=== PATIENT | male | born 1960 | race Caucasian/White ===

== ENCOUNTER 2017-09-23 13:13 | Emergency (ER) | payer OTHER ==
[2017-09-23 13:38] VITALS: BP 152/91
--- NOTE | 2017-09-23 13:43 | UC ---
Laceration HPI - HPI Summary HPI Summary: pt cut his left thumb wih a utility knife 48 hours ago. it continues to bleed since. the bleeding will stop with pressure but reoccurs when he bends the thumb. no FB sensation, limited rom or numb/weakness. tetanus is utd(<10 years). - History Of Current Complaint Stated Complaint: LEFT THUMB LACERATION Time Seen by Provider: 09/23/17 13:32 Hx Obtained From: Patient, Family/3D Modeler Aggravating Factors: Movement - Allergies/Home Medications Allergies/Adverse Reactions: Allergies Allergy/AdvReac Type Severity Reaction Status Date / Time No Known Allergies Allergy Verified 09/23/17 13:38 Home Medications: Home Medications Blood Pressure Med 09/23/17 [History] PMH/Surg Hx/FS Hx/Imm Hx Cardiovascular History: Hypertension Other History Of: Negative For: HIV, Hepatitis B, Hepatitis C, Anticoagulant Therapy - Surgical History Surgical History: Yes Surgery Procedure, Year, and Place: vasectomy - Family History Known Family History: Positive: None - Social History Occupation: Employed Full-time Lives: With Family Alcohol Use: Occasionally Substance Use Type: None Smoking Status (MU): Never Smoked Tobacco - Immunization History Hx Tetanus, Diphtheria Vaccination: Yes Vaccination Up to Date: Yes Review of Systems Constitutional: Negative Skin: Other - cut L thumb Eyes: Negative ENT: Negative Respiratory: Negative Cardiovascular: Negative Gastrointestinal: Negative Genitourinary: Negative Motor: Negative Neurovascular: Negative Musculoskeletal: Negative Neurological: Negative Psychological: Negative Is Patient Immunocompromised?: No All Other Systems Reviewed And Are Negative: Yes Physical Exam Triage Information Reviewed: Yes Appearance: Well-Appearing Vital Signs Reviewed: Yes Eyes: Positive: Conjunctiva Clear ENT: Positive: Normal ENT inspection Neck: Positive: Supple Respiratory: Positive: Lungs clear, Normal breath sounds Cardiovascular: Positive: RRR, No Murmur Abdomen Description: Positive: Nontender, No Organomegaly, Soft Bowel Sounds: Positive: Present Neurological: Positive: Alert Psychological: Positive: Age Appropriate Behavior Skin Exam: Normal, Other - 1.5cm laceration dorsal L thumb just distal to mcp joint. tiny arterial bleeder in center that spurts when uncovered. s/v/m to thumb is intact. Laceration Course/Dx - Course/Dx Course Of Treatment: Procedure: pressure to distal site, bleeding stopped. no fb , tendon injury in bloodless filed. cleaned with betadine then irrigated with 500ml sterile water. pressure applied for several minutes. bleeding stopped. steri-strip to center of wound. within moments, began to spurt again. strips removed. pt advised of risk for infection given age of the wound. since bleeding will not stop, pt will take increased risk of infection and would like sutures placed. time out done. site reprep betadine, draped and closed 5-0 nylon and 2 stitches (1 simple, 1 horizontal) placed. bleeding stopped. bacitracin applied to site followed by bandage. sterile technique used for procedure and pt tolerated well. aluminum foam frog splint applied to limit rom due to proximity of cut to joint. - Differential Dx - Laceration/Wound Provider Diagnoses: 1.5cm laceration L dorsal thumb Discharge - Sign-Out/Discharge Documenting (check all that apply): Discharge - Discharge Plan Condition: Stable Disposition: HOME Prescriptions: Amoxicillin/Clavulanate TAB* [Augmentin TAB 875*] 875 mg PO BID #20 tab Patient Education Materials: Care For Your Stitches (DC) Referrals: Leia Harmon MD [Primary Care Provider] - 3 Days Additional Instructions: WOUND CHECK DR PITTS IN 3 DAYS OR SOONER IF NEEDED. SUTURES OUT IN 10 DAYS OR DIRECTED BY DR PITTS. - Billing Disposition and Condition Condition: STABLE Disposition: HOME
[2017-09-23] MEDS ORDERED: Lidocaine 1% MPF* 2 ML VIAL INJ ONE (14:06)
[2017-09-23] MEDS ORDERED: Amoxicillin/Clavulanate TAB* 875 MG PO ONE (14:06)
== END 2017-09-23 14:44 | disposition home or self-care (01) ==
LOC: UCCORT 13:13
DX: S61.012A Laceration without foreign body of left thumb without damage to nail, initial encounter (principal); W26.0XXA Contact with knife, initial encounter; Y93.9 Activity, unspecified; Y92.9 Unspecified place or not applicable
CPT/HCPCS: 12001; 99212; A9270-GY; G0463

== ENCOUNTER 2017-10-02 18:35 | Emergency (ER) | payer OTHER ==
--- NOTE | 2017-10-02 18:49 | UC ---
HPI Wound/Suture Re-check - HPI Summary HPI Summary: Patient had 2 sutures placed in his left thumb 9 days ago patient here today for suture removal. Patient reports the wound healing well no evidence of infection full range of motion - History Of Current Complaint Chief Complaint: UCWounds Stated Complaint: SUTURE REMOVAL Time Seen by Provider: 10/02/17 18:48 Hx Obtained From: Patient Onset/Duration: Sudden Onset, Lasting Days - 9, Still Present Pain Intensity: 0 Pain Scale Used: 0-10 Numeric - Allergies/Home Medications Allergies/Adverse Reactions: Allergies Allergy/AdvReac Type Severity Reaction Status Date / Time No Known Allergies Allergy Verified 10/02/17 18:51 PMH/Surg Hx/FS Hx/Imm Hx Previously Healthy: No Cardiovascular History: Hypertension Other History Of: Negative For: HIV, Hepatitis B, Hepatitis C, Anticoagulant Therapy - Surgical History Surgical History: Yes Surgery Procedure, Year, and Place: vasectomy - Family History Known Family History: Positive: None - Social History Occupation: Employed Full-time Lives: With Family Alcohol Use: Occasionally Substance Use Type: None Smoking Status (MU): Never Smoked Tobacco - Immunization History Most Recent Tetanus Shot: 2013 Hx Tetanus, Diphtheria Vaccination: Yes Vaccination Up to Date: Yes Review of Systems Constitutional: Negative Skin: Other - Healing wound on left thumb Eyes: Negative ENT: Negative Respiratory: Negative Cardiovascular: Negative Gastrointestinal: Negative Genitourinary: Negative Motor: Negative Neurovascular: Negative Musculoskeletal: Negative Neurological: Negative Psychological: Negative Is Patient Immunocompromised?: No All Other Systems Reviewed And Are Negative: Yes Physical Exam Triage Information Reviewed: Yes Appearance: Well-Appearing, No Pain Distress, Well-Nourished Vital Signs Reviewed: Yes Eye Exam: Normal Eyes: Positive: Conjunctiva Clear ENT Exam: Normal ENT: Positive: Normal ENT inspection, Hearing grossly normal. Negative: Nasal congestion, Trismus, Muffled voice, Hoarse voice Dental Exam: Normal Neck exam: Normal Neck: Positive: Supple, Nontender, No Lymphadenopathy Respiratory Exam: Normal Respiratory: Positive: Chest non-tender, No respiratory distress, No accessory muscle use Cardiovascular Exam: Normal Cardiovascular: Positive: RRR, Brisk Capillary Refill Musculoskeletal Exam: Normal Musculoskeletal: Positive: Strength Intact, ROM Intact, No Edema Neurological Exam: Normal Neurological: Positive: Alert Psychological Exam: Normal Skin Exam: Normal Skin: Positive: Other - Well-healed wound on left thumb Course/Dx - Course Course Of Treatment: Sutures removed wound well approximated 2 Steri-Strips applied patient follow with pressure with PCP return for any problems or concerns - Differential Dx - Laceration/Wound Provider Diagnoses: Hypertension in poor control, suture removal healed wound left thumb Discharge - Sign-Out/Discharge Documenting (check all that apply): Discharge - Discharge Plan Condition: Stable Disposition: HOME Patient Education Materials: Hypertension (ED), Steristrips (ED), Stitches Removal (ED) Referrals: Leia Harmon MD [Primary Care Provider] - 2 Weeks - Billing Disposition and Condition Condition: STABLE Disposition: HOME
[2017-10-02 19:01] VITALS: BP 158/86
--- OUTSIDE RECORDS SUMMARY | 2017-10-02 19:04 | XMS REPORT ---
:1960 External Reference #:[id number] Author Organization [facility] [employer] Address [address] [address] Phone [phone] Care Team Providers Name Role Phone Leia Harmon MD Care Team Information Sales Engineer Account Manager Unavailable Leia Harmon MD Primary Care Physician Unavailable Payers Type Date Identification Numbers Payment Provider Subscriber Commercial Policy Number: [id number] [employer] Cecilia Suarez Group Number: [id number] [address] PayID: [id number] [place] [address] Problems Description No Information Family History Date Family Member(s) Problem(s) Comments General Colon Cancer General Lung Cancer Father Alive And Well Mother due to age 68 () - Ovarian cancer Mother Ovarian Cancer Social History Type Date Description Comments Marital Status Lives With Occupation Currently Working [employer] Cigarette Use Never Smoked Cigarettes ETOH Use Drinks Alcoholic Beverages approx 4 beers daily Occasionally Smoking Patient has never smoked Recreational Drug Use Never Used Drugs Daily Caffeine Does Not Consume Caffeine not regularly Exercise Type/Frequency Exercises regularly works as a [employer] Allergies, Adverse Reactions, Alerts Date Description Reaction Status Severity Comments 09/17/2014 NKDA active Medications Medication Date Status Form Strength Qnty SIG Indications Ordering Provider Lisinopril Active Tablets 10mg 90tabs 1 by I10 Milton Melgar 018 mouth Brand, every M.D. day Metoprolol 0 Active Tablets ER 25mg 1 by Unknown Succinate ER 000 24HR mouth every day Amoxicillin/C Active Tablets 875-125mg 1 by Unknown lavulanate 000 mouth Potassium twice a day for ten days Aspirin Ec 00/00/[address] 81mg 1 by Unknown 000 - mouth every 015 day Carafate /0 Hx Tablets 1gm 1 tab 4 Unknown 000 - times daily 015 Dexilant /[address] 30mg 1 by Unknown 000 - mouth every 015 day Vital Signs Date Vital Result Comment 09/27/2017 Weight 207.00 lb BP Systolic Sitting 150 mmHg lue reg cuff BP Diastolic Sitting 92 mmHg lue reg cuff BP Systolic Standing 152 mmHg lue reg cuff BP Diastolic Standing 100 mmHg lue reg cuff Respiratory Rate 16 /min Pain Level 0 Ejection Fraction 65% 08/09/2005 echo 09/20/2016 Heart Rate 72 /min BP Systolic 160 mmHg BP Diastolic 100 mmHg Respiratory Rate 16 /min Body Temperature 98.8 F 08/18/2016 Height 69 inches 5'9" Weight 200.00 lb Heart Rate 72 /min BP Systolic 160 mmHg BP Diastolic 100 mmHg Respiratory Rate 16 /min Body Temperature 99.2 F BMI (Body Mass Index) 29.5 kg/m2 07/23/2015 Height 69 inches 5'9" Weight 200.00 lb Heart Rate 60 /min BP Systolic Sitting 140 mmHg BP Diastolic Sitting 92 mmHg BMI (Body Mass Index) 29.5 kg/m2 07/02/2015 Height 69 inches 5'9" Weight 200.00 lb Heart Rate 60 /min BP Systolic Sitting 128 mmHg BP Diastolic Sitting 94 mmHg BMI (Body Mass Index) 29.5 kg/m2 10/02/2014 Height 69 inches 5'9" Weight 204.00 lb with shoes Heart Rate 80 /min regular BP Systolic 122 mmHg right arm reg cuff BP Diastolic 68 mmHg right arm reg cuff BP Systolic Sitting 124 mmHg left arm reg cuff BP Diastolic Sitting 76 mmHg left arm reg cuff BP Systolic Standing 122 mmHg left arm reg cuff BP Diastolic Standing 80 mmHg left arm reg cuff Respiratory Rate 18 /min BMI (Body Mass Index) 30.1 kg/m2 Results Test Date Test Result H/L Range Note Urinalysis Profile 08/18/2016 Urine Color Yellow Urine Appearance Clear Urine Specific [place] 1.021 1.010-1.030 Urine pH 5.0 5-9 Urine Urobilinogen Negative Negative Urine Ketones Negative Negative Urine Protein Negative Negative Urine Leukocytes Negative Negative Urine Blood 2+ Negative Urine Nitrite Negative Negative Urine Bilirubin Negative Negative Urine Glucose Negative Negative Urine White Blood Cell Absent Absent Urine Red Blood Cell Trace(0-2/hpf) Absent Urine Bacteria Absent Absent CBC Auto Diff 08/18/2016 White Blood Count 6.8 10^3/uL 3.5-10.8 Red Blood Count 5.05 10^6/uL 4.0-5.4 Hemoglobin 14.8 g/dL 14.0-18.0 Hematocrit 43 % 42-52 Mean Corpuscular Volume 85 fL 80-94 Mean Corpuscular Hemoglobin 29 pg 27-31 Mean Corpuscular HGB Conc 34 g/dL 31-36 Red Cell Distribution Width 13 % 10.5-15 Platelet Count 192 10^3/uL 150-450 Mean Platelet Volume 9 um3 7.4-10.4 Abs Neutrophils 4.4 10^3/uL 1.5-7.7 Abs Lymphocytes 1.6 10^3/uL 1.0-4.8 Abs Monocytes 0.4 10^3/uL 0-0.8 Abs Eosinophils 0.3 10^3/uL 0-0.6 Abs Basophils 0 10^3/uL 0-0.2 Abs Nucleated RBC 0.01 10^3/uL Granulocyte % 64.4 % 38-83 Lymphocyte % 24.1 % Low 25-47 Monocyte % 6.4 % 1-9 Eosinophil % 4.6 % 0-6 Basophil % 0.5 % 0-2 Nucleated Red Blood Cells % 0.1 Procedures Date CPT Code Description Status 09/27/2017 38420 EKG Tracing & Interpretation Completed 08/18/2016 75491 Anoscopy Completed 07/02/2015 23041 Xray Knee 3 Views Completed 10/15/2014 78675 ECHO Stress Test Incl Perf Contiuous ekg Monitoring Completed W/Phys Superv 10/02/2014 12549 EKG Tracing & Interpretation Completed Encounters Type Date Location Provider CPT E/M Dx Office Visit 09/27/2017 9:00a [facility], [address] I10 Gretta Gillespie R94.39 Office Visit 09/20/2016 1:30p [facility], [address] K62.89 Of rGetta LEIVA Office Visit 08/18/2016 2:45p [facility] [address] K62.89 Of Gretta LEIVA Office Visit 07/23/2015 10:00[place] [facility] [address] [id number] Of [facility] Office Visit 07/02/2015 11:30[place] [address] M23.42 Of [facility] M25.562 Office Visit 10/02/2014 1:00p [facility] [place], [address] 786.50 Gretta Gillespie Plan of Care Future Appointment(s):10/30/2017 9:00 am - Jennifer Leger N.P. at [facility]09/27/2017 - [facility] M.D.I10 Essential (primary) hypertensionNew Medication:Lisinopril 10 mgFollow up:1 month with Jennifer Anderson94.39 Abnormal result of other cardiovascular function study
== END 2017-10-02 19:01 | disposition home or self-care (01) ==
LOC: UCCORT 18:35
DX: S61.012D Laceration without foreign body of left thumb without damage to nail, subsequent encounter (principal); W45.8XXD Other foreign body or object entering through skin, subsequent encounter; I10 Essential (primary) hypertension

== ENCOUNTER 2018-08-29 07:00 | Emergency (ER) | payer OTHER ==
[2018-08-29 07:16] VITALS: BP 128/80
--- NOTE | 2018-08-29 07:35 | UC ---
Back Pain HPI - HPI Summary HPI Summary: 57 yo male with right sub acapular pain x 1 wk no trauma no change in pain with position/deep breath/use of right arm no cough/cp or sob no abd pain - History of Current Complaint Chief Complaint: UCUpperExtremity Stated Complaint: PAIN UNDER RIGHT SHOULDER BLADE X 1 WEEK Time Seen by Provider: 08/29/18 07:17 Hx Obtained From: Patient Onset/Duration: Gradual Onset, Lasting Hours, Lasting Days Severity Initially: Mild Severity Currently: Moderate Pain Intensity: 5 Pain Scale Used: 0-10 Numeric Back Pain: Is Discrete @ - see image Character: Dull, Aching Aggravating Factor(s): Nothing Alleviating Factor(s): OTC Meds Associated Signs And Symptoms: Positive: Negative Full Body (No Head): 1 - pain - Allergies/Home Medications Allergies/Adverse Reactions: Allergies Allergy/AdvReac Type Severity Reaction Status Date / Time No Known Allergies Allergy Verified 10/02/17 18:51 Home Medications: Home Medications Atorvastatin* [Lipitor*] 40 mg PO QPM 08/29/18 [History Confirmed 08/29/18] Ibuprofen TAB* [Advil TAB*] 400 mg PO Q6H PRN 08/29/18 [History Confirmed ] Losartan TAB* [Cozaar TAB*] 25 mg PO QAM 08/29/18 [History Confirmed 08/29/18] Metoprolol Tartrate TAB* [Lopressor TAB*] 25 mg PO QPM 08/29/18 [History Confirmed 08/29/18] PMH/Surg Hx/FS Hx/Imm Hx Previously Healthy: Yes Endocrine History: Dyslipidemia Cardiovascular History: Hypertension Other History Of: Negative For: HIV, Hepatitis B, Hepatitis C, Anticoagulant Therapy - Surgical History Surgical History: Yes Surgery Procedure, Year, and Place: vasectomy - Family History Known Family History: Positive: Hypertension - Social History Alcohol Use: <1/Daily Substance Use Type: None Smoking Status (MU): Never Smoked Tobacco - Immunization History Most Recent Tetanus Shot: 2013 Hx Tetanus, Diphtheria Vaccination: Yes Vaccination Up to Date: Yes Review of Systems All Other Systems Reviewed And Are Negative: Yes Constitutional: Positive: Negative Skin: Positive: Negative Eyes: Positive: Negative ENT: Positive: Negative Respiratory: Positive: Negative Cardiovascular: Positive: Negative Gastrointestinal: Positive: Negative Genitourinary: Positive: Negative Motor: Positive: Negative Neurovascular: Positive: Negative Musculoskeletal: Positive: Negative Neurological: Positive: Negative Psychological: Positive: Negative Physical Exam Triage Information Reviewed: Yes Appearance: Well-Appearing, No Pain Distress, Well-Nourished Vital Signs: Initial Vital Signs Temp 97.9 F 08/29/18 07:10 Pulse 59 08/29/18 07:10 Resp 16 08/29/18 07:10 BP 128/80 08/29/18 07:10 Pulse Ox 99 08/29/18 07:10 Vital Signs Reviewed: Yes Eyes: Positive: Conjunctiva Clear ENT: Positive: Normal ENT inspection. Negative: Pharyngeal erythema, Nasal congestion, Nasal drainage, Trismus, Muffled voice, Hoarse voice Neck: Positive: Supple, Nontender Respiratory: Positive: Lungs clear, Normal breath sounds, No respiratory distress, No accessory muscle use Cardiovascular: Positive: RRR, No Murmur Abdomen Description: Negative: Nontender - slight RUQ tenderness Bowel Sounds: Positive: Present Musculoskeletal: Positive: ROM Intact, No Edema Neurological: Positive: Alert Psychological Exam: Normal Skin Exam: Normal Diagnostics - Radiology No standard instances Radiology Interpretation Completed By: Radiologist Summary of Radiographic Findings: NAD Back Pain Course/Dx - Differential Dx/Diagnosis Provider Diagnosis: Right subscapular pain Discharge - Sign-Out/Discharge Documenting (check all that apply): Patient Departure All imaging exams completed and their final reports reviewed: Yes - Discharge Plan Condition: Stable Disposition: HOME Prescriptions: Omeprazole 20 mg PO DAILY #14 capsule.dr Patient Education Materials: Thoracic Pain (ED) Referrals: Leia Harmon MD [Primary Care Provider] - As Soon As Possible Additional Instructions: blood work pending - Billing Disposition and Condition Condition: STABLE Disposition: Home
[2018-08-29 13:53] LABS: ABS Basophils 0 10^3/ul (0-0.2); ABS Eosinophils 0.1 10^3/ul (0-0.6); ABS Lymphocytes 1.2 10^3/ul (1.0-4.8); ABS Monocytes 0.4 10^3/ul (0-0.8); ABS Neutrophils 3.6 10^3/ul (1.5-7.7); ABS Nucleated RBC 0 10^3/ul; Eosinophil % 1.7 %; Hematocrit 46 % (36-46); Hemoglobin 15.5 g/dL (14.0-18.0); Mean Corpuscular HGB Conc 34 g/dL (31-36); Mean Corpuscular Hemoglobin 29 pg (27-31); Mean Corpuscular Volume 86 fL (80-94); Mean Platelet Volume 9.6 fL (7.4-10.4); Nucleated Red Blood Cells % 0.2; Platelet Count 189 10^3/uL (150-450); Red Blood Count 5.28 10^6 /uL (4.18-5.48); Red Cell Distribution Width 12 % (10.5-15); White Blood Count 5.3 10^3/uL (3.5-10.8)
[2018-08-29 14:11] LABS: Albumin 4.3 g/dL (3.2-5.2); Calcium 9.3 mg/dL (8.6-10.3); Potassium 4.1 mmol/L (3.5-5.0); Total Bilirubin 0.7 mg/dL (0.2-1.0)
[2018-08-29 14:18] LABS: Albumin/Globulin Ratio 1.9 (1-3); BUN/Creatinine Ratio 22.6 (8-20); EGFR African American 86.8 (>60); EGFR Non-African American 71.8 (>60); Globulin 2.3 g/dL (2-4); Total Protein 6.6 g/dL (6.4-8.9)
== END 2018-08-29 09:04 | disposition home or self-care (01) ==
LOC: UCCORT 07:00
DX: M25.511 Pain in right shoulder (principal); R10.811 Right upper quadrant abdominal tenderness; I10 Essential (primary) hypertension; E78.5 Hyperlipidemia, unspecified; Z79.899 Other long term (current) drug therapy
CPT/HCPCS: 36415; 71046; 80053; 83690; 85025; 99212; G0463

== ENCOUNTER 2019-09-05 09:16 | Day surgery (SDC) | payer OTHER ==
[~2019-09-05 09:16] MED LIST: Buffered Lidocaine 1% SYRIN* 1 ML/SYRINGE INTRADERM ONE; Lactated Ringers 1000 ML Bag* 1,000 ML IV SCH
[2019-09-05] MEDS ORDERED: Naloxone* 0.4 MG/ML 1 ML VIAL IV PRN (09:51)
[2019-09-05] MEDS ORDERED: HYDROmorphone INJ1* 1 MG/ML SYRINGE IV PRN (09:51)
[2019-09-05] MEDS ORDERED: Ofloxacin 0.3% (Ear Drop)* 5 ml BTL ONE (10:54)
[2019-09-05] MEDS ORDERED: Oxymetazoline 0.05% NASAL SPR* 15 ML BTL ONE ×3 (10:55→11:30)
[2019-09-05] MEDS ORDERED: Lidocaine 1% w EPI 1:100,000* MDV 20 ML VIAL ONE (11:30)
[2019-09-05] MEDS ORDERED: Lidocaine 4% TOPICAL* 50 ML TOP.SOLN ONE (11:30)
[2019-09-05] MEDS ORDERED: fentaNYL* 50 MCG/ML 2 ML VIAL (100 MCG VIAL) ONE (11:37)
[2019-09-05] MEDS ORDERED: Midazolam* 1 MG/ML 2 ML VIAL (2 MG) ONE (11:38)
[2019-09-05] MEDS ORDERED: Bacitracin OINTMENT* 0.5% 0.5 oz TUBE ONE (11:56)
[2019-09-05] MEDS ORDERED: Dexamethasone IV* 4 MG/ML 1 ML (4 MG) ONE (11:58)
[2019-09-05] MEDS ORDERED: Ondansetron INJ* 2 MG/ML VIAL ONE (11:58)
[2019-09-05] MEDS ORDERED: Lidocaine 2% PF * 5 ML VIAL ONE (11:58)
[2019-09-05] MEDS ORDERED: Propofol* 10 MG/ML 20 ML BTL ONE (11:58)
[2019-09-05 13:44] VITALS: BP 174/113
--- NOTE | 2019-09-05 13:55 | OP ---
OPERATIVE REPORT: DATE OF OPERATION: 09/05/19 DATE OF : 58 SURGEON: Wilmer Ernandez MD. MEDICAL ASSISTANT PER DIEM: None. ANESTHESIA: General. PRE-OP DIAGNOSIS: Deviated nasal septum. POST-OP DIAGNOSIS: Deviated nasal septum. OPERATIVE PROCEDURE: Septoplasty. ESTIMATED BLOOD LOSS: Less than 20 cc. SPECIMEN: Septal cartilage was discarded as well as some septal bone. COMPLICATIONS: None. INDICATIONS: This is a 58-year-old male with, I believe, life long nasal airway obstruction, refract ory to medical management. He was noted to have severe septal deviation with essentially complete ob struction of the right nasal cavity on exam in the office and the decision was made to proceed with s eptoplasty. DESCRIPTION OF PROCEDURE: On 09/05/19, the patient was brought to the operating room, general anesth esia was induced and an LMA was placed. The patient was then draped and a time-out was performed. T he patient had been decongested in the holding area with Afrin, approximately 9 cc of 1% lidocaine wi th 1:100,000 epinephrine was infiltrated into the region of the columella as well as both sides of th e septum. Pledgets soaked in 4% lidocaine and Afrin were placed in each nasal cavity. Once adequate time had been allowed for vasoconstriction, the procedure was begun. A #15 blade was used to make a left hemitransfixion incision and a mucoperichondrial flap was then elevated off of the quadrangular cartilage and maxillary crest. The left mucoperichondrial flap was elevated without any injury to t he mucosa. A vertical incision was then made through the anterior portion of the quadrangular cartil age about 1 cm posterior to the columellar edge and this facilitated exposure to the submucoperichond rial space on the right side. A flap was elevated on the right side. Unfortunately, there was a sig nificant linear laceration of the flap where he had the sharpest portion of the septal spur. W ith the flaps elevated, the deviated portions of the septal cartilage and bone were removed. A Juan Ae nger Swivel knife was used to resect quadrangular cartilage. Maxillary crest was taken down with a 4- mm osteotome. Smaller pieces of cartilage and bone were removed with a Jerzy. Once all deviated portions except the cartilage and bone were removed, the largest piece of the sepal cartilage was th en morselized. It was placed back between the mucoperichondrial flaps. The flaps were sutured down on to the cartilage using chromic. The hemitransfixion incision was then closed, again with chromic, and magnetic septal splints were then placed and secured with a 4-0 Prolene. Drop pad was applied. The patient was then returned to the care of the anesthesiologist, extubated and delivered to the [facility] in stable condition. [id number] #: [id number]
== END 2019-09-05 13:58 | disposition home or self-care (01) ==
LOC: OR 09:16
PROVIDERS: ATTEND Otolaryngology
DX: J34.2 Deviated nasal septum (principal); I10 Essential (primary) hypertension; E78.00 Pure hypercholesterolemia, unspecified; R00.2 Palpitations; R31.29 Other microscopic hematuria; K21.9 Gastro-esophageal reflux disease without esophagitis; E78.5 Hyperlipidemia, unspecified
CPT/HCPCS: A9270-GY; J1100; J2250; J2405; J2704; J3010